=== PATIENT | male | born 1995 | race Caucasian/White ===

== ENCOUNTER 2020-11-13 21:20 | Emergency (ER) | payer OTHER ==
[2020-11-13 22:16] LABS: HEMOGLOBIN 15.9 gm/dl (14.0-17.5); RED BLOOD COUNT 5.53 M/UL (4.20-5.50)
[2020-11-13 22:33] LABS: BUN/CREATININE RATIO 11 (0-10)
[2020-11-14] MEDS ORDERED: TORADOL 10 MG T10 MG PO (02:17)
[2020-11-14] MEDS ORDERED: FLOMAX 0.4 MG0.4 MG PO (02:17)
[2020-11-14] MEDS ORDERED: ZOFRAN ODT 4 MG4 MG PO (02:17)
== END 2020-11-14 02:35 | disposition home or self-care (01) ==
LOC: ER1 21:20
PROVIDERS: Physician Assistant
DX: N13.2 Hydronephrosis with renal and ureteral calculous obstruction (principal)
CPT/HCPCS: 80053; 81001; 83690; 85025; 87086; 96374; 96375; 99284; J1885; J2405; Q9967

== ENCOUNTER 2020-11-26 14:30 | Emergency (ER) | payer SELFPAY ==
[~2020-11-26 14:30] MED LIST: FLOMAX 0.4 MG0.4 MG PO; TORADOL 10 MG T10 MG PO; ZOFRAN ODT 4 MG4 MG PO
[2020-11-26 15:24] LABS: HEMOGLOBIN 16.4 gm/dl (14.0-17.5); RED BLOOD COUNT 5.44 M/UL (4.20-5.50); WHITE BLOOD COUNT 11.9 K/UL (4.5-11.0)
[2020-11-26 15:41] LABS: BUN/CREATININE RATIO 14 (0-10)
[2020-11-26] MEDS ORDERED: HYDROCODON-ACE1 EAC4 PO (16:30)
== END 2020-11-26 16:52 | disposition home or self-care (01) ==
LOC: ER1 14:30
PROVIDERS: Nurse Practitioner
DX: N13.2 Hydronephrosis with renal and ureteral calculous obstruction (principal)
CPT/HCPCS: 80053; 81001; 85025; 96374; 96375; 99284; J1885; J2270; J2405; J7030